=== PATIENT | male | born 1950 | race Caucasian/White ===

== ENCOUNTER → 2018-03-12 15:56 | Outpatient (CLI) | payer OTHER, SELFPAY ==
[2018-03-12 17:33] LABS: PSA,Total - Annual Screen 0.71 ng/mL (0.00-4.00)
== END ==
PROVIDERS: Family Provider Internal Medicine; PCP Internal Medicine; Referring Provider Urology; Visit Provider Urology
DX: Z12.5 Encounter for screening for malignant neoplasm of prostate (principal)
CPT/HCPCS: 36415; 84153; G0103